=== PATIENT | male | born 2000 | race Caucasian/White ===

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

== ENCOUNTER 2019-01-26 08:26 | Emergency (ER) | payer BC ==
[2019-01-26 08:43] VITALS: BP 142/88
[2019-01-26 09:07] LABS: Influenza A Molecular NEGATIVE (Negative); Influenza B Molecular NEGATIVE (Negative)
[2019-01-26] MEDS ORDERED: Acetaminophen TAB* 325 MG PO ONE (09:25)
--- NOTE | 2019-01-26 09:54 | UC ---
Throat Pain/Nasal Walter HPI - HPI Summary HPI Summary: 18-year-old male comes in with chief complaint of influenza-like illness. He has nausea vomiting body aches sore throat fevers. Patient has a history of recurrent tonsillitis. It does hurt to swallow. Took some acetaminophen last night which did help some but the symptoms. No vomiting this morning but he is nauseous. - History of Current Complaint Chief Complaint: UCRespiratory Stated Complaint: ST,FLU LIKE SYMPTOMS Time Seen by Provider: 01/26/19 09:42 Pain Intensity: 8 - Allergies/Home Medications Allergies/Adverse Reactions: Allergies Allergy/AdvReac Type Severity Reaction Status Date / Time Penicillins Allergy Unknown Verified 01/26/19 08:38 Reaction Details Sulfa (Sulfonamide Allergy Unknown Verified 01/26/19 08:38 Antibiotics) Reaction Details telithromycin [From Ketek] Allergy Unknown Verified 01/26/19 08:38 Reaction Details macrolides Allergy Unknown Uncoded 01/26/19 08:38 Reaction Details Home Medications: Home Medications Acetaminophen [Acetaminophen Extra Strength] 1,000 mg PO ONCE PRN 01/26/19 [ History Confirmed 01/26/19] PMH/Surg Hx/FS Hx/Imm Hx Previously Healthy: Yes - RECURRENT TONSILLITIS - Surgical History Surgical History: Yes Surgery Procedure, Year, and Place: adenoids as young child - Family History Known Family History: Positive: Hypertension, Other - No sick contacts - Social History Alcohol Use: Occasionally Substance Use Type: None Smoking Status (MU): Never Smoked Tobacco Review of Systems All Other Systems Reviewed And Are Negative: Yes Constitutional: Positive: Fever, Chills, Other - SEE HPI Skin: Positive: Negative Eyes: Positive: Negative ENT: Positive: Sore Throat, Nasal Discharge, Sinus Congestion Respiratory: Positive: Negative Cardiovascular: Positive: Negative Gastrointestinal: Positive: Vomiting, Diarrhea, Nausea Motor: Positive: Negative Neurovascular: Positive: Negative Musculoskeletal: Positive: Myalgia Neurological: Positive: Negative Psychological: Positive: Negative Is Patient Immunocompromised?: No Physical Exam Triage Information Reviewed: Yes Appearance: No Pain Distress, Well-Nourished, Ill-Appearing - MILD Vital Signs: Initial Vital Signs Temp 100.9 F 01/26/19 08:39 Pulse 112 01/26/19 08:39 Resp 17 01/26/19 08:39 BP 142/88 01/26/19 08:39 Pulse Ox 96 01/26/19 08:39 Vital Signs Reviewed: Yes Eye Exam: Normal Eyes: Positive: Conjunctiva Clear ENT: Positive: Pharyngeal erythema, Nasal congestion, Nasal drainage, TMs normal , Tonsillar swelling - No Tonsillar abscess apparent at this time. Tonsils erythematous and are 3+ B/L and touch the uvula which is midline, Uvula midline Neck: Positive: Supple Respiratory: Positive: Lungs clear, Normal breath sounds, No respiratory distress Cardiovascular: Positive: RRR Musculoskeletal: Positive: Strength Intact, ROM Intact Neurological: Positive: Alert, Muscle Tone Normal Psychological: Positive: Age Appropriate Behavior Skin Exam: Normal Throat Pain/Nasal Course/Dx - Course Course Of Treatment: DISCUSSED VIRAL VERSES BACTERIAL INFECTIONS AND THE ROLE OF ANTIBIOTICS. THE PATIENT PREFERS TO BE ON ANTIBIOTICS AT THIS TIME. Due to the size the tonsils we'll also treat with a short course of prednisone. Patient should be reevaluated if worsening or any questions or concerns. - Differential Dx/Diagnosis Provider Diagnosis: Tonsillitis Discharge ED - Sign-Out/Discharge Documenting (check all that apply): Patient Departure All imaging exams completed and their final reports reviewed: No Studies - Discharge Plan Condition: Stable Disposition: HOME Prescriptions: Clindamycin Cap(NF) [Clindamycin Cap 300 mg Cap(NF)] 300 mg PO TID #30 cap Ondansetron ODT TAB* [Zofran 4 MG Odt TAB*] 4 mg PO Q6H PRN #10 tab.odt PRN Reason: Nausea predniSONE TAB* [Deltasone 20 MG TAB*] 40 mg PO DAILY #8 tab Patient Education Materials: Tonsillitis (ED) Forms: *School Release Referrals: [facility] [Outside] Additional Instructions: FOLLOW UP WITH YOUR DOCTOR IF NOT COMPLETELY IMPROVED. GET REEVALUATED SOONER IF NOT IMPROVING OR WORSE OR ANY QUESTIONS OR CONCERNS. - Billing Disposition and Condition Condition: STABLE Disposition: Home
== END 2019-01-26 10:00 | disposition home or self-care (01) ==
LOC: UCCORT 08:26
DX: J03.90 Acute tonsillitis, unspecified (principal); R11.2 Nausea with vomiting, unspecified; Z88.0 Allergy status to penicillin; Z88.2 Allergy status to sulfonamides; Z88.1 Allergy status to other antibiotic agents
CPT/HCPCS: 87651; 99212; A9270-GY; G0463